=== PATIENT | male | born 1990 | race Caucasian/White ===

== ENCOUNTER → 2023-12-06 | Outpatient (CLI) | payer OTHER, SELFPAY ==
--- NOTE | 2023-12-06 13:31 | DI.RAD.S_ITS ---
PROCEDURE: XR SACRUM COCCYX MIN 2V INDICATIONS: Sacroiliitis TECHNIQUE: 3 views of the sacrum and coccyx acquired. COMPARISON: None. FINDINGS: Bones: No fractures or dislocations. No suspicious bony lesions. Soft tissues: Visualized bowel gas pattern is normal. No suspicious soft tissue densities. IMPRESSION: Normal sacrococcygeal radiographs Approved by: Uriel Richter M.D. on 12/08/2023 at 18:14
== END ==
LOC: RAD 13:30
PROVIDERS: Referring Provider Chiropractor; Visit Provider Chiropractor
DX: M46.1 Sacroiliitis, not elsewhere classified (principal); K50.90 Crohn's disease, unspecified, without complications
CPT/HCPCS: 72220